=== PATIENT | male | born 1935 | race Caucasian/White ===

== ENCOUNTER 2018-06-17 19:26 | Inpatient (IN) | payer MEDICARE ==
[~2018-06-17] VITALS: Ht 167.6 cm; Wt 76.7 kg
[2018-06-17 19:49] LABS: *BILIRUBIN,URIN NEGATIVE (NEGATIVE); *BLOOD, URINE 2+ (NEGATIVE); *CLARITY,URINE SLIGHTLY CLOUDY (CLEAR); *COLOR,URINE YELLOW (YELLOW); *KETONES,URINE TRACE (NEGATIVE); *UROBILINOGEN,URINE 0.2 E.U./dl (NORMAL); LEUKOCYTE ESTERASE ,URINE NEGATIVE (NEGATIVE); NITRITE, URINE NEGATIVE (NEGATIVE); PH,URINE 5.5 (5.0-8.0); UGLUCOSE NEGATIVE (NEGATIVE)
[2018-06-17] MEDS ORDERED: KRIL1CAP21 PO (19:51)
[2018-06-17] MEDS ORDERED: [UNRECOGNIZED DRUG - CODE] PO (19:51)
[2018-06-17] MEDS ORDERED: METO25TA3 PO (19:51)
[2018-06-17] MEDS ORDERED: GABA300C PO (19:51)
[2018-06-17] MEDS ORDERED: MELA1TAB9 PO (19:51)
[2018-06-17] MEDS ORDERED: ASPI-1094 PO (19:51)
[2018-06-17] MEDS ORDERED: TAMS-3 PO (19:51)
[2018-06-17] MEDS ORDERED: FINA5TAB11 PO (19:51)
[2018-06-17] MEDS ORDERED: UBID100C13 PO (19:51)
[2018-06-17] MEDS ORDERED: ALLO100T56 PO (19:51)
[2018-06-17] MEDS ORDERED: OMEP20CA10 PO (19:51)
[2018-06-17] MEDS ORDERED: MULT1TAB73 PO (19:51)
[2018-06-17] MEDS ORDERED: ATOR40TA PO (19:51)
[2018-06-17] MEDS ORDERED: CHOL20004 PO (19:51)
[2018-06-17] MEDS ORDERED: BETA1TAB19 PO (19:51)
[2018-06-17] MEDS ORDERED: CYCL30DR OP (19:51)
[2018-06-17] MEDS ORDERED: LISI-607 PO (19:51)
[2018-06-17] MEDS ORDERED: CYAN10009 PO (19:51)
[2018-06-17 19:57] LABS: BACTERIA,URINE NONE SEEN /HPF (NONE SEEN); SQUAMOUS EPITHELIAL CELL,UR FEW /HPF (NONE SEEN); WBC,URINE 0-3 /HPF (0-3)
[2018-06-17] MEDS ORDERED: NEOMY/BACITRA/POLYMYXIN B OINT UD PACKET TP ONE ×2 (19:59→20:15)
[2018-06-17 20:00] VITALS: BP 147/73
[2018-06-17] MEDS ORDERED: MAGNESIUM HYDROXIDE 30 ML LIQUID UDC PO PRN (20:30)
[2018-06-17] MEDS ORDERED: ACETAMINOPHEN 325 MG TABLET PO PRN (20:30)
[2018-06-17] MEDS ORDERED: LORAZEPAM 0.5 MG TABLET PO PRN (20:30)
[2018-06-17] MEDS ORDERED: MAG HYDROX/AL HYDROX/SIMETH 30 ML LIQUID UDC PO PRN (20:30)
[2018-06-18] MEDS: PANTOPRAZOLE SODIUM 40 MG TABLET.DR PO SCH (06:00)
[2018-06-18] MEDS ORDERED: LORAZEPAM 1 MG TABLET PO PRN (07:15)
[2018-06-18 07:30] VITALS: BP 159/78
[2018-06-18 08:31] LABS: ALANINE AMINOTRANSFERASE 32 U/L (16-63); ALKALINE PHOSPHATASE 78 U/L (50-136); ASPARTATE AMINOTRANSFERASE 34 U/L (15-37); BILIRUBIN,TOTAL 2.8 mg/dL (0.2-1.0); CARBON DIOXIDE 25 mmol/L (21-32); CHLORIDE 104 mmol/L (98-107); CHOLESTEROL 175 mg/dL (<200); CREATININE 1.1 mg/dL (0.6-1.3); GLUCOSE 124 mg/dL (74-106); GLUCOSE FASTING 124 mg/dL (70-115); HDL CHOLESTEROL 72 mg/dL (40-60); MAGNESIUM 1.9 mg/dL (1.8-2.4); PHOSPHOROUS 2.6 mg/dL (2.5-4.9); POTASSIUM 4.2 mmol/L (3.5-5.1); TOTAL PROTEIN, SERUM 8.7 g/dL (6.4-8.2); TRIGLYCERIDES 133 MG/DL (30-150); UREA NITROGEN, BLOOD 18 mg/dL (7-18)
[2018-06-18 08:44] LABS: THYROID STIMULATING HORMONE 1.267 mIU/mL (0.358-3.740)
[2018-06-18] MEDS ORDERED: Medication Not On Formulary EA (Cholecalciferol (Vitamin D3) (Vitamin D CAPSULE) 2,000 U PO SCH (09:00)
[2018-06-18] MEDS ORDERED: EPA PO SCH (09:00)
[2018-06-18] MEDS: FINASTERIDE 5 MG TABLET PO SCH (09:00)
[2018-06-18] MEDS: LISINOPRIL 5 MG TABLET PO SCH (09:00)
[2018-06-18] MEDS ORDERED: DHA PO SCH (09:00)
[2018-06-18] MEDS: ALLOPURINOL 100 MG TABLET PO SCH (09:00)
[2018-06-18] MEDS ORDERED: [UNRECOGNIZED DRUG - OTHER] PO SCH (09:00)
[2018-06-18] MEDS ORDERED: KRILL PO SCH (09:00)
[2018-06-18] MEDS ORDERED: PHOSPHO PO SCH (09:00)
[2018-06-18] MEDS ORDERED: AST PO SCH (09:00)
[2018-06-18] MEDS ORDERED: Medication Not On Formulary EA (Multivitamins (Multivitamin) 1 EACH) PO SCH (09:00)
[2018-06-18] MEDS: CHOLECALCIFEROL 1,000 UNIT TABLET PO SCH (09:01)
[2018-06-18] MEDS: BETA CAROTENE/VIT C & E/MIN TABLET PO SCH (09:01)
[2018-06-18] MEDS: TAMSULOSIN HCL 0.4 MG CAP.SR.24H PO SCH (09:01)
[2018-06-18] MEDS: CYANOCOBALAMIN 1,000 MCG TABLET PO SCH (09:01)
[2018-06-18] MEDS: MULTIVITAMINS,THERAPEUTIC TABLET PO SCH (09:02)
[2018-06-18] MEDS: METOPROLOL SUCCINATE XL 25 MG TAB.SR.24H PO SCH (09:02)
[2018-06-18 09:31] LABS: BASOPHILS % (AUTO) 0.2 % (0.0-2.0); EOSINOPHILS # (AUTO) 0.1 K/uL (0.0-0.7); EOSINOPHILS % (AUTO) 0.9 % (0.0-7.0); HEMATOCRIT 52.7 % (36.7-47.1); HEMOGLOBIN 18.6 g/dL (12.5-16.3); LYMPHOCYTES # (AUTO) 1.5 K/uL (20.0-40.0); LYMPHOCYTES % (AUTO) 18.5 % (20.5-51.5); MEAN CORPUSCULAR HEMOGLOBIN 33.7 uug (23.8-33.4); MEAN CORPUSCULAR HGB CONC 35 g/dL (32.5-36.3); MEAN CORPUSCULAR VOLUME 95.4 fL (73.0-96.2); MONOCYTES # (AUTO) 0.7 K/uL (2.0-10.0); MONOCYTES % (AUTO) 8.6 % (0.0-11.0); NEUTROPHILS # (AUTO) 5.9 K/uL (1.8-8.9); NEUTROPHILS % (AUTO) 71.8 % (38.5-71.5); PLATELET COUNT (AUTO) 214 K/uL (152-348); RED BLOOD CELL COUNT(AUTO) 5.53 MIL/uL (4.06-5.63); WHITE BLOOD COUNT (AUTO) 8.2 K/uL (3.6-10.2)
[2018-06-18 13:56] LABS: BAND % (MANUAL) 1 % (0-10); EOSINOPHILS % (MANUAL) 1 % (0-8); LYMPHOCYTES % (MANUAL) 19 % (20-40); MONOCYTES % (MANUAL) 10 % (2-10); NEUTROPHILS % (MANUAL) 69 % (42-75)
[2018-06-18 15:20] VITALS: BP 139/69
[2018-06-18] MEDS: POLYVINYL ALCOHOL OPHT DROPS 15 ML BOTTLE EACHEYE SCH (17:10)
[2018-06-18 20:00] VITALS: BP 121/60
[2018-06-18] MEDS: ATORVASTATIN 40 MG TABLET PO SCH (20:03)
[2018-06-18] MEDS: ASPIRIN 81 MG TAB.CHEW PO SCH (20:03)
[2018-06-18] MEDS: GABAPENTIN 300 MG CAPSULE PO SCH (20:03)
[2018-06-18] MEDS: ESCITALOPRAM OXALATE 10 MG TABLET PO SCH (20:04)
[2018-06-18] MEDS: DIVALPROEX 125 MG TABLET.DR PO SCH (20:04)
[2018-06-18] MEDS ORDERED: DIVALPROEX 125 MG TABLET.DR PO SCH (21:00)
[2018-06-18] MEDS ORDERED: GABAPENTIN 300 MG CAPSULE PO SCH (21:00)
[2018-06-18] MEDS ORDERED: NIACIN 500 MG PO SCH (21:00)
[2018-06-19] MEDS: PANTOPRAZOLE SODIUM 40 MG TABLET.DR PO SCH (06:10)
[2018-06-19 07:30] VITALS: BP 143/76
[2018-06-19] MEDS: TAMSULOSIN HCL 0.4 MG CAP.SR.24H PO SCH (09:09)
[2018-06-19] MEDS: OMEGA-3 FATTY ACIDS/FISH OIL CAPSULE PO SCH (09:09)
[2018-06-19] MEDS: BETA CAROTENE/VIT C & E/MIN TABLET PO SCH (09:09)
[2018-06-19] MEDS: MULTIVITAMINS,THERAPEUTIC TABLET PO SCH (09:10)
[2018-06-19] MEDS: LISINOPRIL 5 MG TABLET PO SCH (09:10)
[2018-06-19] MEDS: DIVALPROEX 125 MG TABLET.DR PO SCH (09:10)
[2018-06-19] MEDS: POLYVINYL ALCOHOL OPHT DROPS 15 ML BOTTLE EACHEYE SCH ×2 (09:11→17:59)
[2018-06-19] MEDS: FINASTERIDE 5 MG TABLET PO SCH (09:13)
[2018-06-19] MEDS: CHOLECALCIFEROL 1,000 UNIT TABLET PO SCH (09:14)
[2018-06-19] MEDS: METOPROLOL SUCCINATE XL 25 MG TAB.SR.24H PO SCH (09:14)
[2018-06-19] MEDS: ALLOPURINOL 100 MG TABLET PO SCH (09:15)
[2018-06-19] MEDS: CYANOCOBALAMIN 1,000 MCG TABLET PO SCH (09:16)
[2018-06-19 15:45] VITALS: BP 94/58
[2018-06-19] MEDS: DIVALPROEX 250 MG TABLET.DR PO SCH (20:16)
[2018-06-19] MEDS: ATORVASTATIN 40 MG TABLET PO SCH (20:17)
[2018-06-19] MEDS: ASPIRIN 81 MG TAB.CHEW PO SCH (20:17)
[2018-06-19] MEDS: ESCITALOPRAM OXALATE 10 MG TABLET PO SCH (20:17)
[2018-06-19] MEDS: GABAPENTIN 300 MG CAPSULE PO SCH (20:18)
[2018-06-19 20:37] VITALS: BP 147/66
[2018-06-19] MEDS ORDERED: DIVALPROEX 125 MG TABLET.DR PO SCH (21:00)
[2018-06-20] MEDS: PANTOPRAZOLE SODIUM 40 MG TABLET.DR PO SCH (06:39)
[2018-06-20 07:30] VITALS: BP 156/62
[2018-06-20] MEDS: DIVALPROEX 250 MG TABLET.DR PO SCH ×2 (08:32→20:48)
[2018-06-20] MEDS: OMEGA-3 FATTY ACIDS/FISH OIL CAPSULE PO SCH (08:32)
[2018-06-20] MEDS: LISINOPRIL 5 MG TABLET PO SCH (08:33)
[2018-06-20] MEDS: CHOLECALCIFEROL 1,000 UNIT TABLET PO SCH (08:33)
[2018-06-20] MEDS: CYANOCOBALAMIN 1,000 MCG TABLET PO SCH (08:33)
[2018-06-20] MEDS: TAMSULOSIN HCL 0.4 MG CAP.SR.24H PO SCH (08:33)
[2018-06-20] MEDS: MULTIVITAMINS,THERAPEUTIC TABLET PO SCH (08:33)
[2018-06-20] MEDS: FINASTERIDE 5 MG TABLET PO SCH (08:33)
[2018-06-20] MEDS: METOPROLOL SUCCINATE XL 25 MG TAB.SR.24H PO SCH (08:34)
[2018-06-20] MEDS: POLYVINYL ALCOHOL OPHT DROPS 15 ML BOTTLE EACHEYE SCH ×2 (08:36→16:54)
[2018-06-20] MEDS: BETA CAROTENE/VIT C & E/MIN TABLET PO SCH (08:42)
[2018-06-20] MEDS: ALLOPURINOL 100 MG TABLET PO SCH (08:42)
[2018-06-20 16:00] VITALS: BP 139/69
[2018-06-20] MEDS: GABAPENTIN 300 MG CAPSULE PO SCH (20:47)
[2018-06-20] MEDS: ESCITALOPRAM OXALATE 10 MG TABLET PO SCH (20:47)
[2018-06-20] MEDS: ATORVASTATIN 40 MG TABLET PO SCH (20:48)
[2018-06-20] MEDS: ASPIRIN 81 MG TAB.CHEW PO SCH (20:48)
[2018-06-20 21:00] VITALS: BP 124/70
[2018-06-21] MEDS: PANTOPRAZOLE SODIUM 40 MG TABLET.DR PO SCH (06:24)
[2018-06-21 07:30] VITALS: BP 138/69
[2018-06-21] MEDS: POLYVINYL ALCOHOL OPHT DROPS 15 ML BOTTLE EACHEYE SCH ×2 (08:37→16:21)
[2018-06-21] MEDS: FINASTERIDE 5 MG TABLET PO SCH (08:37)
[2018-06-21] MEDS: BETA CAROTENE/VIT C & E/MIN TABLET PO SCH (08:37)
[2018-06-21] MEDS: CYANOCOBALAMIN 1,000 MCG TABLET PO SCH (08:38)
[2018-06-21] MEDS: MULTIVITAMINS,THERAPEUTIC TABLET PO SCH (08:38)
[2018-06-21] MEDS: METOPROLOL SUCCINATE XL 25 MG TAB.SR.24H PO SCH (08:38)
[2018-06-21] MEDS: LISINOPRIL 5 MG TABLET PO SCH (08:38)
[2018-06-21] MEDS: OMEGA-3 FATTY ACIDS/FISH OIL CAPSULE PO SCH (08:38)
[2018-06-21] MEDS: CHOLECALCIFEROL 1,000 UNIT TABLET PO SCH (08:38)
[2018-06-21] MEDS: TAMSULOSIN HCL 0.4 MG CAP.SR.24H PO SCH (08:39)
[2018-06-21] MEDS: ALLOPURINOL 100 MG TABLET PO SCH (08:39)
[2018-06-21] MEDS: DIVALPROEX 250 MG TABLET.DR PO SCH ×2 (08:39→20:18)
[2018-06-21 16:00] VITALS: BP 131/66
[2018-06-21] MEDS: ATORVASTATIN 40 MG TABLET PO SCH (20:18)
[2018-06-21] MEDS: GABAPENTIN 300 MG CAPSULE PO SCH (20:18)
[2018-06-21] MEDS: ASPIRIN 81 MG TAB.CHEW PO SCH (20:18)
[2018-06-21] MEDS: ESCITALOPRAM OXALATE 10 MG TABLET PO SCH (20:19)
[2018-06-21 20:30] VITALS: BP 156/70
[2018-06-21 21:30] VITALS: BP 161/65
[2018-06-21] MEDS: hydrALAZINE HCL 25 MG TABLET PO SCH (21:37)
[2018-06-22] MEDS: PANTOPRAZOLE SODIUM 40 MG TABLET.DR PO SCH (06:02)
[2018-06-22] MEDS: METOPROLOL SUCCINATE XL 25 MG TAB.SR.24H PO SCH (08:17)
[2018-06-22] MEDS: TAMSULOSIN HCL 0.4 MG CAP.SR.24H PO SCH (08:17)
[2018-06-22] MEDS: LISINOPRIL 5 MG TABLET PO SCH (08:17)
[2018-06-22] MEDS: POLYVINYL ALCOHOL OPHT DROPS 15 ML BOTTLE EACHEYE SCH ×2 (08:18→17:25)
[2018-06-22] MEDS: MULTIVITAMINS,THERAPEUTIC TABLET PO SCH (08:46)
[2018-06-22] MEDS: CYANOCOBALAMIN 1,000 MCG TABLET PO SCH (08:46)
[2018-06-22] MEDS: OMEGA-3 FATTY ACIDS/FISH OIL CAPSULE PO SCH (08:46)
[2018-06-22] MEDS: FINASTERIDE 5 MG TABLET PO SCH (08:46)
[2018-06-22] MEDS: DIVALPROEX 250 MG TABLET.DR PO SCH ×2 (08:46→20:10)
[2018-06-22] MEDS: CHOLECALCIFEROL 1,000 UNIT TABLET PO SCH (08:46)
[2018-06-22] MEDS: ALLOPURINOL 100 MG TABLET PO SCH (08:46)
[2018-06-22] MEDS: BETA CAROTENE/VIT C & E/MIN TABLET PO SCH (08:46)
[2018-06-22 09:32] VITALS: BP 148/84
[2018-06-22 16:47] VITALS: BP 136/64
[2018-06-22 19:38] VITALS: BP 153/69
[2018-06-22] MEDS: ASPIRIN 81 MG TAB.CHEW PO SCH (20:10)
[2018-06-22] MEDS: ATORVASTATIN 40 MG TABLET PO SCH (20:10)
[2018-06-22] MEDS: GABAPENTIN 300 MG CAPSULE PO SCH (20:10)
[2018-06-22] MEDS: ESCITALOPRAM OXALATE 10 MG TABLET PO SCH (20:11)
[2018-06-22] MEDS: TEMAZEPAM 7.5 MG CAPSULE PO PRN (21:11)
[2018-06-23] MEDS: PANTOPRAZOLE SODIUM 40 MG TABLET.DR PO SCH (06:19)
[2018-06-23 07:30] VITALS: BP 113/72
[2018-06-23] MEDS: CYANOCOBALAMIN 1,000 MCG TABLET PO SCH (08:59)
[2018-06-23] MEDS: DIVALPROEX 250 MG TABLET.DR PO SCH ×2 (08:59→20:40)
[2018-06-23] MEDS: POLYVINYL ALCOHOL OPHT DROPS 15 ML BOTTLE EACHEYE SCH ×2 (08:59→16:52)
[2018-06-23] MEDS: TAMSULOSIN HCL 0.4 MG CAP.SR.24H PO SCH (08:59)
[2018-06-23] MEDS: OMEGA-3 FATTY ACIDS/FISH OIL CAPSULE PO SCH (08:59)
[2018-06-23] MEDS: CHOLECALCIFEROL 1,000 UNIT TABLET PO SCH (08:59)
[2018-06-23] MEDS: FINASTERIDE 5 MG TABLET PO SCH (09:00)
[2018-06-23] MEDS: LISINOPRIL 5 MG TABLET PO SCH (09:00)
[2018-06-23] MEDS: BETA CAROTENE/VIT C & E/MIN TABLET PO SCH (09:01)
[2018-06-23] MEDS: ALLOPURINOL 100 MG TABLET PO SCH (09:01)
[2018-06-23] MEDS: METOPROLOL SUCCINATE XL 25 MG TAB.SR.24H PO SCH (09:01)
[2018-06-23] MEDS: MULTIVITAMINS,THERAPEUTIC TABLET PO SCH (09:01)
[2018-06-23 16:04] VITALS: BP 106/52
[2018-06-23 20:32] VITALS: BP 134/61
[2018-06-23] MEDS: ASPIRIN 81 MG TAB.CHEW PO SCH (20:40)
[2018-06-23] MEDS: ESCITALOPRAM OXALATE 10 MG TABLET PO SCH (20:40)
[2018-06-23] MEDS: GABAPENTIN 300 MG CAPSULE PO SCH (20:41)
[2018-06-23] MEDS: ATORVASTATIN 40 MG TABLET PO SCH (20:41)
[2018-06-24] MEDS: PANTOPRAZOLE SODIUM 40 MG TABLET.DR PO SCH (06:21)
[2018-06-24] MEDS: CHOLECALCIFEROL 1,000 UNIT TABLET PO SCH (08:16)
[2018-06-24] MEDS: OMEGA-3 FATTY ACIDS/FISH OIL CAPSULE PO SCH (08:16)
[2018-06-24] MEDS: CYANOCOBALAMIN 1,000 MCG TABLET PO SCH (08:17)
[2018-06-24] MEDS: MULTIVITAMINS,THERAPEUTIC TABLET PO SCH (08:17)
[2018-06-24] MEDS: DIVALPROEX 250 MG TABLET.DR PO SCH ×2 (08:17→20:18)
[2018-06-24] MEDS: METOPROLOL SUCCINATE XL 25 MG TAB.SR.24H PO SCH (08:17)
[2018-06-24] MEDS: TAMSULOSIN HCL 0.4 MG CAP.SR.24H PO SCH (08:17)
[2018-06-24] MEDS: FINASTERIDE 5 MG TABLET PO SCH (08:18)
[2018-06-24] MEDS: BETA CAROTENE/VIT C & E/MIN TABLET PO SCH (08:18)
[2018-06-24] MEDS: LISINOPRIL 5 MG TABLET PO SCH (08:18)
[2018-06-24] MEDS: POLYVINYL ALCOHOL OPHT DROPS 15 ML BOTTLE EACHEYE SCH ×2 (08:19→16:05)
[2018-06-24] MEDS: ALLOPURINOL 100 MG TABLET PO SCH (08:19)
[2018-06-24 08:21] VITALS: BP 142/76
[2018-06-24 16:00] VITALS: BP 147/72
[2018-06-24 19:57] VITALS: BP 130/63
[2018-06-24] MEDS: ATORVASTATIN 40 MG TABLET PO SCH (20:18)
[2018-06-24] MEDS: GABAPENTIN 300 MG CAPSULE PO SCH (20:18)
[2018-06-24] MEDS: ASPIRIN 81 MG TAB.CHEW PO SCH (20:18)
[2018-06-24] MEDS: ESCITALOPRAM OXALATE 10 MG TABLET PO SCH (20:19)
[2018-06-24] MEDS: hydrALAZINE HCL 25 MG TABLET PO SCH (23:57)
[2018-06-25 01:16] VITALS: BP 152/60
[2018-06-25] MEDS: PANTOPRAZOLE SODIUM 40 MG TABLET.DR PO SCH (06:23)
[2018-06-25 07:30] VITALS: BP 106/52
[2018-06-25 08:03] LABS: BASOPHILS % (AUTO) 0.4 % (0.0-2.0); EOSINOPHILS # (AUTO) 0.2 K/uL (0.0-0.7); EOSINOPHILS % (AUTO) 2.4 % (0.0-7.0); HEMATOCRIT 47.1 % (36.7-47.1); HEMOGLOBIN 16.2 g/dL (12.5-16.3); LYMPHOCYTES % (AUTO) 32.2 % (20.5-51.5); MEAN CORPUSCULAR HEMOGLOBIN 32.8 uug (23.8-33.4); MEAN CORPUSCULAR HGB CONC 34 g/dL (32.5-36.3); MEAN CORPUSCULAR VOLUME 95.2 fL (73.0-96.2); MONOCYTES # (AUTO) 0.7 K/uL (2.0-10.0); MONOCYTES % (AUTO) 11.5 % (0.0-11.0); NEUTROPHILS # (AUTO) 3.3 K/uL (1.8-8.9); NEUTROPHILS % (AUTO) 53.5 % (38.5-71.5); PLATELET COUNT (AUTO) 179 K/uL (152-348); RED BLOOD CELL COUNT(AUTO) 4.95 MIL/uL (4.06-5.63); WHITE BLOOD COUNT (AUTO) 6.2 K/uL (3.6-10.2)
[2018-06-25 08:15] LABS: CARBON DIOXIDE 32 mmol/L (21-32); CHLORIDE 103 mmol/L (98-107); CREATININE 1.3 mg/dL (0.6-1.3); GLUCOSE 93 mg/dL (74-106); POTASSIUM 3.9 mmol/L (3.5-5.1); UREA NITROGEN, BLOOD 25 mg/dL (7-18)
[2018-06-25] MEDS: OMEGA-3 FATTY ACIDS/FISH OIL CAPSULE PO SCH (08:24)
[2018-06-25] MEDS: CHOLECALCIFEROL 1,000 UNIT TABLET PO SCH (08:24)
[2018-06-25] MEDS: FINASTERIDE 5 MG TABLET PO SCH (08:24)
[2018-06-25] MEDS: BETA CAROTENE/VIT C & E/MIN TABLET PO SCH (08:25)
[2018-06-25] MEDS: MULTIVITAMINS,THERAPEUTIC TABLET PO SCH (08:25)
[2018-06-25] MEDS: CYANOCOBALAMIN 1,000 MCG TABLET PO SCH (08:25)
[2018-06-25] MEDS: DIVALPROEX 250 MG TABLET.DR PO SCH ×3 (08:25→20:26)
[2018-06-25] MEDS: METOPROLOL SUCCINATE XL 25 MG TAB.SR.24H PO SCH (08:25)
[2018-06-25] MEDS: ALLOPURINOL 100 MG TABLET PO SCH (08:25)
[2018-06-25] MEDS: TAMSULOSIN HCL 0.4 MG CAP.SR.24H PO SCH (08:25)
[2018-06-25] MEDS: LISINOPRIL 5 MG TABLET PO SCH (08:26)
[2018-06-25] MEDS: POLYVINYL ALCOHOL OPHT DROPS 15 ML BOTTLE EACHEYE SCH ×2 (08:40→17:02)
[2018-06-25 15:19] VITALS: BP 137/69
[2018-06-25 20:03] VITALS: BP 155/64
[2018-06-25 20:24] VITALS: BP 162/71
[2018-06-25] MEDS: ESCITALOPRAM OXALATE 10 MG TABLET PO SCH (20:26)
[2018-06-25] MEDS: GABAPENTIN 300 MG CAPSULE PO SCH (20:26)
[2018-06-25] MEDS: ATORVASTATIN 40 MG TABLET PO SCH (20:26)
[2018-06-25] MEDS: ASPIRIN 81 MG TAB.CHEW PO SCH (20:26)
[2018-06-25] MEDS: hydrALAZINE HCL 25 MG TABLET PO SCH (20:27)
[2018-06-26 00:57] VITALS: BP 133/65
[2018-06-26] MEDS: TEMAZEPAM 7.5 MG CAPSULE PO PRN ×2 (00:57→21:51)
[2018-06-26] MEDS: PANTOPRAZOLE SODIUM 40 MG TABLET.DR PO SCH (06:01)
[2018-06-26 07:30] VITALS: BP 158/88
[2018-06-26] MEDS: CHOLECALCIFEROL 1,000 UNIT TABLET PO SCH (08:20)
[2018-06-26] MEDS: OMEGA-3 FATTY ACIDS/FISH OIL CAPSULE PO SCH (08:20)
[2018-06-26] MEDS: METOPROLOL SUCCINATE XL 25 MG TAB.SR.24H PO SCH (08:20)
[2018-06-26] MEDS: DIVALPROEX 250 MG TABLET.DR PO SCH ×3 (08:20→20:34)
[2018-06-26] MEDS: CYANOCOBALAMIN 1,000 MCG TABLET PO SCH (08:20)
[2018-06-26] MEDS: TAMSULOSIN HCL 0.4 MG CAP.SR.24H PO SCH (08:21)
[2018-06-26] MEDS: MULTIVITAMINS,THERAPEUTIC TABLET PO SCH (08:21)
[2018-06-26] MEDS: BETA CAROTENE/VIT C & E/MIN TABLET PO SCH (08:22)
[2018-06-26] MEDS: ALLOPURINOL 100 MG TABLET PO SCH (08:22)
[2018-06-26] MEDS: FINASTERIDE 5 MG TABLET PO SCH (08:22)
[2018-06-26] MEDS: LISINOPRIL 5 MG TABLET PO SCH (08:23)
[2018-06-26] MEDS: POLYVINYL ALCOHOL OPHT DROPS 15 ML BOTTLE EACHEYE SCH ×2 (08:24→17:46)
[2018-06-26] MEDS ORDERED: hydrALAZINE HCL 25 MG TABLET PO PRN (14:21)
[2018-06-26 16:15] VITALS: BP 132/67
[2018-06-26 20:10] VITALS: BP 153/65
[2018-06-26] MEDS: ASPIRIN 81 MG TAB.CHEW PO SCH (20:34)
[2018-06-26] MEDS: GABAPENTIN 300 MG CAPSULE PO SCH (20:34)
[2018-06-26] MEDS: ATORVASTATIN 40 MG TABLET PO SCH (20:34)
[2018-06-26] MEDS: ESCITALOPRAM OXALATE 10 MG TABLET PO SCH (20:47)
[2018-06-27] MEDS: PANTOPRAZOLE SODIUM 40 MG TABLET.DR PO SCH (06:17)
[2018-06-27 07:30] VITALS: BP 143/57
[2018-06-27] MEDS: CHOLECALCIFEROL 1,000 UNIT TABLET PO SCH (08:27)
[2018-06-27] MEDS: DIVALPROEX 250 MG TABLET.DR PO SCH (08:27)
[2018-06-27] MEDS: CYANOCOBALAMIN 1,000 MCG TABLET PO SCH (08:27)
[2018-06-27] MEDS: POLYVINYL ALCOHOL OPHT DROPS 15 ML BOTTLE EACHEYE SCH (08:28)
[2018-06-27] MEDS: LISINOPRIL 5 MG TABLET PO SCH (08:29)
[2018-06-27] MEDS: BETA CAROTENE/VIT C & E/MIN TABLET PO SCH (08:29)
[2018-06-27] MEDS: FINASTERIDE 5 MG TABLET PO SCH (08:30)
[2018-06-27] MEDS: ALLOPURINOL 100 MG TABLET PO SCH (08:30)
[2018-06-27] MEDS: MULTIVITAMINS,THERAPEUTIC TABLET PO SCH (08:37)
[2018-06-27] MEDS: OMEGA-3 FATTY ACIDS/FISH OIL CAPSULE PO SCH (08:37)
[2018-06-27 08:38] VITALS: BP 143/53
[2018-06-27] MEDS: METOPROLOL SUCCINATE XL 25 MG TAB.SR.24H PO SCH (08:38)
[2018-06-27] MEDS: TAMSULOSIN HCL 0.4 MG CAP.SR.24H PO SCH (08:38)
== END 2018-06-27 13:00 | disposition home or self-care (01) | DRG 885 ==
LOC: ER 19:29 → GPS 20:07
PROVIDERS: ADMIT Psychiatry & Neurology Psychiatry; ATTEND Nurse Practitioner Acute Care
DX: F31.4 Bipolar disorder, current episode depressed, severe, without psychotic features (principal); E89.6 Postprocedural adrenocortical (-medullary) hypofunction; F50.89 Other specified eating disorder; Z68.27 Body mass index [BMI] 27.0-27.9, adult; Z79.899 Other long term (current) drug therapy; I25.10 Atherosclerotic heart disease of native coronary artery without angina pectoris; Z95.1 Presence of aortocoronary bypass graft; Z85.89 Personal history of malignant neoplasm of other organs and systems; Z92.3 Personal history of irradiation; F10.21 Alcohol dependence, in remission; Z85.828 Personal history of other malignant neoplasm of skin; E78.5 Hyperlipidemia, unspecified; I10 Essential (primary) hypertension; N40.0 Benign prostatic hyperplasia without lower urinary tract symptoms
CPT/HCPCS: 36415; 71045; 80164; 83735; 84100; 84443; 85025; 87086; 93005; A4663; J3490; J8499